=== PATIENT | female | born 1960 | race Caucasian/White ===

== ENCOUNTER 2017-01-09 11:24 | Emergency (ER) | payer BC ==
[~2017-01-09] VITALS: Ht 152.4 cm; Wt 61.0 kg
[~2017-01-09 11:24] MED LIST: ASPI-664 PO; CIPR-193 PO; CRES10 PO; HYDR200T39 PO; LANT3I SC; MTF1000T PO; SULF500T5 PO; TRAM-40 PO
[2017-01-09 11:31] VITALS: Ht 152.4 cm; Wt 61.0 kg
[2017-01-09] MEDS ORDERED: TENO300T2 PO (15:36)
[2017-01-09] MEDS ORDERED: CHOL20003 PO (15:37)
[2017-01-09] MEDS ORDERED: PRED20TA PO (15:37)
[2017-01-09] MEDS ORDERED: morphine 4 MG/ML VIAL IV STA (15:50)
[2017-01-09] MEDS ORDERED: ONDANSETRON 4 MG INJ IV STA (15:50)
[2017-01-09] MEDS ORDERED: KETOROLAC 15 MG INJ IV STA (15:50)
--- NOTE | 2017-01-09 15:57 | ERD ---
ER Documentation Chief Complaint Date/Time DATE: 01/09/17 TIME: 15:51 Chief Complaint generalized weakness , joint pain x 2 weeks HPI 56-year-old female with a history of rheumatoid arthritis, diabetes mellitus type 2 insulin-dependent, hiatal hernia, hyperlipidemia, hyperlipidemia, chronic back pain and sciatica presents to the ED complaining of a one-week history of total body and joint pains including shoulders, elbows, wrists, knees and ankles. Pain is achy and has been severe for 2 days exacerbated by any kind of movement. No relieving factors. Her last similar exacerbation was in August 2016. Denies URI symptoms or cough. Denies chest pain, palpitations or shortness of breath. No abdominal pain, nausea, vomiting, diarrhea or constipation. No hematemesis, hematochezia or melanotic stools. No dysuria, polyuria or hematuria. No headache, visual changes, focal weakness or numbness. In triage apparently she complained of generalized weakness but she denies this currently and states that she was misunderstood and her complaint is pain. No fevers or chills. ROS All systems reviewed and are negative except as per history of present illness. Medications Home Meds Reported Medications Cholecalciferol (Vitamin D3) (VITAMIN D-3) 2,000 Unit Capsule, 2000 UNIT PO DAILY, CAP 01/09/17 Prednisone* (Prednisone*) 20 Mg Tab, 20 MG PO DAILY Y for PRN, TAB 01/09/17 Tenofovir Disoproxil Fumarate (Viread) 300 Mg Tablet, 300 MG PO DAILY, TAB 01/09/17 Sulfasalazine* (Sulfazine*) 500 Mg Tablet, 1000 MG PO BID, TAB 08/15/16 Hydroxychloroquine Sulfate* (Hydroxychloroquine Sulfate*) 200 Mg Tablet, 400 MG PO DAILY, TAB 08/15/16 Metformin* (Glucophage*) 1,000 Mg Tablet, 1000 MG PO BID, #60 TAB 08/15/16 Insulin Glargine* (Lantus*) 100 Unit/Ml Soln, 20 UNIT SC QHS, #1 VIAL 08/15/16 Discontinued Reported Medications Rosuvastatin Calcium* (Crestor*) 10 Mg Tablet, 10 MG PO QHS, #30 TAB 08/15/16 Tramadol Hcl* (Ultram*) 50 Mg Tablet, 50 MG PO Q12 Y for PAIN, TAB 08/15/16 Aspirin (Aspirin Low Dose) 81 Mg Tablet.dr, 81 MG PO DAILY 05/10/13 Discontinued Scripts Ciprofloxacin Hcl* (Ciprofloxacin Hcl*) 250 Mg Tablet, 250 MG PO BID for 3 Days , TAB Prov:BEATRIZ WALTERS 08/16/16 Allergies Allergies: Coded Allergies: No Known Allergy (Unverified , 01/09/17) PMhx/Soc Reviewed in chart. As per HPI History of Surgery: Yes () Anesthesia Reaction: No Hx Neurological Disorder: No Hx Respiratory Disorders: No Hx Cardiac Disorders: No Hx Psychiatric Problems: No Hx Miscellaneous Medical Probl: Yes (Rheumatoid arthritis, diabetes mellitus, chronic back and flank pain, sciatica.) Hx Alcohol Use: No Hx Substance Use: No Hx Tobacco Use: No Smoking Status: Never smoker FmHx No stroke or cancer Physical Exam Vitals Vital Signs Date Time Temp Pulse Resp B/P Pulse Ox O2 Delivery O2 Flow Rate FiO2 01/09/17 11:31 98.1 98 18 128/69 98 Physical Exam Const: [] Head: Atraumatic Eyes: Normal Conjunctiva ENT: Normal External Ears, Nose and Mouth. Neck: Full range of motion..~ No meningismus. Resp: Clear to auscultation bilaterally Cardio: Regular rate and rhythm, no murmurs Abd: Soft, non tender, non distended. Normal bowel sounds Skin: No petechiae or rashes Back: No midline or flank tenderness Ext: No cyanosis, or edema Neur: Awake and alert Psych: Normal Mood and Affect Result Diagram: 01/09/17 1611 01/09/17 1611 Results 24 hrs Laboratory Tests Test 01/09/17 16:11 01/09/17 17:48 White Blood Count 8.810^3/ul Red Blood Count 4.2710^6/ul Hemoglobin 13.1g/dl Hematocrit 37.7% Mean Corpuscular Volume 88.3fl Mean Corpuscular Hemoglobin 30.7pg Mean Corpuscular Hemoglobin Concent 34.7g/dl Red Cell Distribution Width 12.5% Platelet Count 73124^3/UL Mean Platelet Volume 10.1fl Neutrophils % 71.4% Lymphocytes % 18.8% Monocytes % 8.3% Eosinophils % 0.6% Basophils % 0.6% Nucleated Red Blood Cells % 0.0/100WBC Neutrophils # 6.310^3/ul Lymphocytes # 1.710^3/ul Monocytes # 0.710^3/ul Eosinophils # 0.110^3/ul Basophils # 0.110^3/ul Nucleated Red Blood Cells # 0.010^3/ul Sodium Level 142mmol/L Potassium Level 3.9mmol/L Chloride Level 104mmol/L Carbon Dioxide Level 24mmol/L Anion Gap 18 Blood Urea Nitrogen 7mg/dl Creatinine 0.44mg/dl Glucose Level 104mg/dl Calcium Level 9.0mg/dl Total Bilirubin 0.3mg/dl Direct Bilirubin 0.00mg/dl Indirect Bilirubin 0.3mg/dl Aspartate Amino Transf (AST/SGOT) 23IU/L Alanine Aminotransferase (ALT/SGPT) 26IU/L Alkaline Phosphatase 89IU/L Total Protein 7.7g/dl Albumin 4.4g/dl Globulin 3.30g/dl Albumin/Globulin Ratio 1.33 Bedside Urine pH (LAB) 6.0 Bedside Urine Protein (LAB) Negative Bedside Urine Glucose (UA) Negative Bedside Urine Ketones (LAB) Negative Bedside Urine Blood Negative Bedside Urine Nitrite (LAB) Negative Bedside Urine Leukocyte Esterase (L Negative Current Medications Medications (Trade) Dose Ordered Sig/[place] Route PRN Reason Start Time Stop Time Status Last Admin Dose Admin Morphine Sulfate (morphine) 4 mg ONCE STAT IV 01/09/17 15:50 01/09/17 15:51 DC 01/09/17 16:01 Ondansetron HCl (Zofran Inj) 4 mg ONCE STAT IV 01/09/17 15:50 01/09/17 15:51 DC 01/09/17 16:01 Ketorolac Tromethamine (Toradol) 15 mg ONCE STAT IV 01/09/17 15:50 01/09/17 15:51 DC 01/09/17 16:01 Procedures/MDM DOCUMENTS REVIEWED: ED nurse, prior ED, prior records including an admission from 08/2016 ED COURSE: IV saline lock. Toradol 50 mg, morphine 4 mg, Zofran 4 mg IV. REEXAMINATION/REEVALUATION: Time: 17:30. Doing well. Pain is almost essentially resolved. Ambulating without difficulty. MEDICAL DECISION MAKIN-year-old female with a history of rheumatoid arthritis, diabetes mellitus type 2 insulin-dependent, hiatal hernia, hyperlipidemia, hyperlipidemia, chronic back pain and sciatica presents to the ED complaining of a one-week history of total body and joint pains including shoulders, elbows, wrists, knees and ankles. Patient presents polyarticular arthralgia with symptoms consistent with exacerbation of her previously diagnosed rheumatoid arthritis. Most recent admission 08/2016 for similar symptoms which time she had extensive workup including CTA of the chest, CAT scan of the abdomen and pelvis, MRI of the thoracic and lumbar spine. Abdominal exam is benign without tenderness, rebound, guarding or other signs of peritonitis or an acute intra-abdominal process. Although considered in the differential doubt acute spinal etiology including but not limited to osteomyelitis, discitis, epidural abscess or occult neoplasm. No fever, leukocytosis or other signs of an occult infectious process. Pain resolved with analgesics. No hyperglycemia or electrolyte abnormalities. She was already on low-dose steroids and decision regarding increasing the dose of deferred to her primary care physician especially as it would interfere with her glycemic control. Stable for discharge with appropriate analgesics and outpatient follow-up as counseled. Counseled patient and family regarding diagnostic workup, diagnosis and need for followup. Understands to return to ED if symptoms recur, worsen or any other concerns. Departure Diagnosis: Primary Impression: Rheumatoid arthritis flare Condition: Stable ANGY GONSALES MD January 09, 2017 15:57
[2017-01-09 16:24] LABS: ADD SCAN DIFF NO
[2017-01-09 16:27] LABS: BASOPHIL # 0.1 10^3/ul (0.0-0.1); BASOPHILS % 0.6 % (0.0-2.0); EOSINOPHILS # 0.1 10^3/ul (0.0-0.5); EOSINOPHILS % 0.6 % (0.0-7.0); HEMATOCRIT 37.7 % (37.0-47.0); HEMOGLOBIN 13.1 g/dl (12.0-16.0); LYMPHOCYTES # 1.7 10^3/ul (0.8-2.9); LYMPHOCYTES % 18.8 % (15.0-51.0); MEAN CORPUSCULAR HEMOGLOBIN 30.7 pg (29.0-33.0); MEAN CORPUSCULAR HGB CONC 34.7 g/dl (32.0-37.0); MEAN CORPUSCULAR VOLUME 88.3 fl (82.0-101.0); MEAN PLATELET VOLUME 10.1 fl (7.4-10.4); MONOCYTE # 0.7 10^3/ul (0.3-0.9); MONOCYTES % 8.3 % (0.0-11.0); NEUTROPHIL # 6.3 10^3/ul (1.6-7.5); NEUTROPHILS % 71.4 % (39.0-77.0); PLATELET COUNT 297 10^3/UL (140-415); RED BLOOD COUNT 4.27 10^6/ul (4.20-5.40); RED CELL DISTRIBUTION WIDTH 12.5 % (11.5-14.5); WHITE BLOOD COUNT 8.8 10^3/ul (4.8-10.8)
[2017-01-09 16:45] LABS: ALBUMIN 4.4 g/dl (3.3-4.9)
[2017-01-09 16:46] LABS: POTASSIUM 3.9 mmol/L (3.5-5.1)
[2017-01-09 16:48] LABS: ALBUMIN/GLOBULIN RATIO 1.33; BILIRUBIN,INDIRECT 0.3 mg/dl (0-1.1); BILIRUBIN,TOTAL 0.3 mg/dl (0.2-1.3); CREATININE 0.44 mg/dl (0.44-1.00); TOTAL PROTEIN 7.7 g/dl (6.1-8.1)
[2017-01-09 17:47] LABS: URINE BLOOD (Dip) POC Negative (NEGATIVE)
[2017-01-09] MEDS ORDERED: TRAM50TA2 PO (18:05)
[2017-01-09 18:17] VITALS: BP 122/70; PULSE 74; RESP 16
== END 2017-01-09 18:19 | disposition home or self-care (01) ==
LOC: E/R 11:24
DX: M06.9 Rheumatoid arthritis, unspecified (principal); E11.9 Type 2 diabetes mellitus without complications; Z79.4 Long term (current) use of insulin; Z79.82 Long term (current) use of aspirin; Z79.84 Long term (current) use of oral hypoglycemic drugs
CPT/HCPCS: 80053; 81003; 85025; 96374; 96375; 99284; J1885; J2270; J2405